=== PATIENT | female | born 2000 | race Caucasian/White ===

== ENCOUNTER 2022-05-28 04:49 | Emergency (ER) | payer SELFPAY ==
[~2022-05-28] VITALS: Ht 162.6 cm; Wt 90.7 kg
--- NOTE | 2022-05-28 05:58 | NUR ---
[place] C/O COUGH AND ASTHMA EXACERBATION SEEN BY PRIMARY CARE PHYSICIAN YESTERDAY. PATIENT ALERT AND ORIENTED X4. AMBULATORY WITH NON LABORED BREATHING IN BED 07 AWAITING MD [email or web address].
[2022-05-28] MEDS ORDERED: predniSONE 20 MG TABLET ONE (06:17)
[2022-05-28] MEDS ORDERED: ALBUTEROL FS 2.5 MG/3 ML VIAL.NEB ONE (06:19)
[2022-05-28] MEDS ORDERED: IPRATROPIUM NEB FS 0.5 MG/2.5 ML AMPUL.NEB ONE (06:19)
--- NOTE | 2022-05-28 06:25 | NUR ---
XRAY AT BEDSIDE
[2022-05-28] MEDS ORDERED: IPRATROPIUM NEB FS 0.5 MG/2.5 ML AMPUL.NEB NEB ONE (06:30)
[2022-05-28] MEDS ORDERED: ALBUTEROL FS 2.5 MG/3 ML VIAL.NEB NEB ONE (06:30)
[2022-05-28] MEDS ORDERED: predniSONE 20 MG TABLET PO ONE (06:30)
--- NOTE | 2022-05-28 06:30 | NUR ---
RT AT PT'S BEDSIDE
[2022-05-28] MEDS ORDERED: PRED20TA PO (07:59)
--- NOTE | 2022-05-28 08:15 | NUR ---
Patient discharged to home in stable condition. Written and verbal after care instructions given. Patient verbalizes understanding of instruction.
[2022-05-28 08:16] VITALS: BP 144/88
== END 2022-05-28 08:16 | disposition home or self-care (01) ==
LOC: ER 05:13
DX: J45.901 Unspecified asthma with (acute) exacerbation (principal); Z88.8 Allergy status to other drugs, medicaments and biological substances
CPT/HCPCS: 99285; 71045; 94644; J7512